=== PATIENT | male | born 1975 | race Caucasian/White ===

== ENCOUNTER 2020-01-22 17:00 | Emergency (ER) | payer BC ==
[2020-01-22] MEDS ORDERED: Acetaminophen/oxyCODONE 325-5 MG Tab PO ONE (17:01)
[2020-01-22] MEDS ORDERED: Cyclobenzaprine 10 MG Tab PO ONE (17:01)
[2020-01-22] MEDS ORDERED: Morphine 4 MG/ML VIAL IVPUSH ONE ×3 (17:15→19:47)
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
[2020-01-22] MEDS ORDERED: Ondansetron 4 MG/2 ML SDV IVPUSH STA (17:17)
[2020-01-22 17:54] LABS: CHLORIDE,CL 103 mEq/L (98-106); SODIUM,NA 142 mEq/L (136-145)
[2020-01-22] MEDS ORDERED: Ondansetron 4 MG/2 ML SDV IVPUSH ONE (18:27)
[2020-01-22] MEDS ORDERED: Sodium Chloride 0.9% 1,000 ML IV ONE (19:47)
[2020-01-22] MEDS ORDERED: Iopamidol 755 Mg/ML 100 ML Bottle IVPUSH ONE (19:56)
[2020-01-22] MEDS ORDERED: Take Home: Acetaminophen/oxyCODONE 325-5 MG, 2 Tab Pack PO ONE (21:47)
[2020-01-22] MEDS ORDERED: Take Home: Cyclobenzaprine 10 MG Tab, 4 Tab Pack PO ONE (21:47)
[2020-01-22 22:01] VITALS: BP 106/63; PULSE 109
== END 2020-01-22 22:00 | disposition home or self-care (01) ==
LOC: CC.ED 17:00
DX: S32.019A Unspecified fracture of first lumbar vertebra, initial encounter for closed fracture (principal); S22.089A Unspecified fracture of T11-T12 vertebra, initial encounter for closed fracture; S40.811A Abrasion of right upper arm, initial encounter; S30.810A Abrasion of lower back and pelvis, initial encounter; V86.96XA Unspecified occupant of dirt bike or motor/cross bike injured in nontraffic accident, initial encounter
CPT/HCPCS: 36415; 71045; 71260; 72072; 72100; 72125; 72128; 72131; 72220; 74177; 80053; 81001; 82150; 83605; 85025; 85610; 96374; 96375; 96376; 99284-25; A9270-GY; J2270; J2405; J3360; J7030; Q9967